=== PATIENT | male | born 1985 | race American Indian/Alaskan Native ===

== ENCOUNTER 2021-07-09 14:05 | Emergency (ER) | payer SELFPAY ==
[2021-07-09] MEDS ORDERED: ONDANSETRON 4 MG/2 ML INJ IM ONE (16:27)
--- NOTE | 2021-07-09 16:30 | Emergency Department Report ---
ED General Adult HPI - General Chief complaint: Nausea/Vomiting/Diarrhea Stated complaint: STOMACH BURNING PAIN/CP/NUMBNESS Time Seen by Provider: 07/09/21 16:20 Source: patient Mode of arrival: Ambulatory Limitations: No Limitations - History of Present Illness Initial comments: Mr. Anderson is a 35 years old male with no significant past medical history. Patient presented to the ER complaining of upper epigastric abdominal pain and substernal chest pain since yesterday. Patient also reported nausea, vomiting and diarrhea. Patient denied any fever or chills. Patient stated that he did not receive COVID-19 vaccine. - Related Data Allergies Allergy/AdvReac Type Severity Reaction Status Date / Time No Known Allergies Allergy Verified 07/09/21 16:12 ED Review of Systems ROS: Stated complaint: STOMACH BURNING PAIN/CP/NUMBNESS Other details as noted in HPI Comment: All other systems reviewed and negative Constitutional: denies: chills, fever Respiratory: cough, shortness of breath. denies: SOB with exertion, SOB at rest, wheezing Cardiovascular: chest pain. denies: palpitations Gastrointestinal: abdominal pain, nausea, vomiting, diarrhea Musculoskeletal: myalgia Neurological: denies: headache, weakness, numbness, paresthesias ED Past Medical Hx - Past Medical History Previous Medical History?: No - Surgical History Past Surgical History?: No - Social History Smoking Status: Current Every Day Smoker ED Physical Exam - General Limitations: No Limitations General appearance: alert, in no apparent distress - Head Head exam: Present: atraumatic, normocephalic, normal inspection - Eye Eye exam: Present: normal appearance, PERRL - ENT ENT exam: Present: normal exam, normal orophraynx, mucous membranes moist - Neck Neck exam: Present: normal inspection, full ROM. Absent: tenderness, meningismus - Respiratory Respiratory exam: Present: normal lung sounds bilaterally - Cardiovascular Cardiovascular Exam: Present: regular rate, normal rhythm, normal heart sounds - GI/Abdominal GI/Abdominal exam: Present: soft, normal bowel sounds. Absent: distended, tenderness, guarding, rebound, rigid, organomegaly, mass, bruit, pulsatile mass, hernia - Extremities Exam Extremities exam: Present: normal inspection, full ROM, normal capillary refill. Absent: tenderness, pedal edema, joint swelling, calf tenderness - Back Exam Back exam: Present: normal inspection, full ROM. Absent: CVA tenderness (R), CVA tenderness (L) - Neurological Exam Neurological exam: Present: alert, oriented X3, CN II-XII intact, normal gait, reflexes normal. Absent: motor sensory deficit - Psychiatric Psychiatric exam: Present: normal mood - Skin Skin exam: Present: warm, intact, normal color ED Course Vital Signs 07/09/21 07/09/21 07/09/21 16:06 17:39 17:40 Temperature 98.9 F 98.2 F Pulse Rate 71 83 Respiratory 18 12 Rate Blood Pressure 133/71 [Right] O2 Sat by Pulse 100 99 99 Oximetry ED Medical Decision Making - Lab Data Result diagrams: 07/09/21 16:46 07/09/21 16:46 - EKG Data -: EKG Interpreted by Hi EKG shows normal: sinus rhythm Rate: normal - EKG Data Interpretation: no acute changes - Radiology Data Radiology results: report reviewed - Medical Decision Making Mr. Anderson is a 35 years old male with no significant past medical history. Patient presented to the ER complaining of upper epigastric abdominal pain and substernal chest pain since yesterday. Patient also reported nausea, vomiting and diarrhea. Patient denied any fever or chills. Patient stated that he did not receive COVID-19 vaccine. EKG is unremarkable. Chest x-ray is negative for acute finding. Labs reviewed and is unremarkable including a negative troponin. Patient chest pain is atypical. Patient described as burning sensation to going to throat. This is most likely consistent with GERD. Patient received Zofran and he stated that it helped his nausea and vomiting very much. Patient also given prescription for Nexium and advised to follow-up with his primary doctor in the next 2 to 3 days and to return to the ER if he develop any new symptoms. Critical care attestation.: If time is entered above; I have spent that time in minutes in the direct care of this critically ill patient, excluding procedure time. ED Disposition Clinical Impression: Acute chest pain, GERD (gastroesophageal reflux disease), Acute nausea with nonbilious vomiting Disposition: 01 HOME / SELF CARE / HOMELESS Is pt being admited?: No Condition: Stable Instructions: Chest Pain (ED), Nausea and Vomiting, Adult, [id number], Nonspecific Chest Pain, Adult, [id number] Referrals: [facility] [Provider Group] - 3-5 Days
--- NOTE | 2021-07-09 17:14 | XRay Report ---
CHEST 1 VIEW 07/09/2021 3:49 PM INDICATION / CLINICAL INFORMATION: Chest pain x2 days. COMPARISON: None available. FINDINGS: SUPPORT DEVICES: None. HEART / MEDIASTINUM: No significant abnormality. LUNGS / PLEURA: No significant pulmonary abnormality. No significant pleural effusion. No pneumothora x. ADDITIONAL FINDINGS: No significant additional findings. IMPRESSION: 1. No acute abnormality of the chest. Signer Name: Jared Louis MD Signed: 07/09/2021 5:10 PM Workstation Name: [id number]
[2021-07-09 17:30] LABS: Basophils % (Auto) 0.3 % (0.0-1.8); Eosinophils % (Auto) 0.1 % (0.0-4.3); Hematocrit 50.5 % (35.5-45.6); Lymphocytes # (Auto) 1.1 K/mm3 (1.2-5.4); Lymphocytes % (Auto) 15.9 % (13.4-35.0); Mean Corpuscular HGB Conc 34 % (32-34); Mean Corpuscular Volume 86 fl (84-94); Monocytes # (Auto) 0.7 K/mm3 (0.0-0.8); Monocytes % (Auto) 10.2 % (0.0-7.3); Platelet Count 208 K/mm3 (140-440); Red Blood Count 5.85 M/mm3 (3.65-5.03); Red Cell Distribution Width 13.3 % (13.2-15.2)
[2021-07-09 17:41] VITALS: BP 133/71
[2021-07-09 17:41] LABS: BUN/Creatinine Ratio 11; Blood Urea Nitrogen 9 mg/dL (9-20); Hemolysis Index 3
--- NOTE | 2021-07-10 10:11 | Electrocardiograph Report ---
[facility] Test Date: 2021-07-09 Test Time: 16:14:00 Pat Name: NICKOLAS BARTH Department: Room: Gender: M [employer]: DOROTHY : 1985 Requested By: RAMANA ZAIDI Order Number: [id number] Reading MD: Issa Burdick Measurements Intervals [place] Rate: 57 P: 63 ME: 134 QRS: 20 QRSD: 89 T: -28 QT: 430 QTc: 418 Interpretive Statements Sinus bradycardia Nonspecific T abnormalities, inferior leads ST elev, probable normal early repol pattern No previous ECG available for comparison Electronically Signed On 07-10-2021 10:10:51 EDT by Issa Burdick
== END 2021-07-09 18:32 | disposition home or self-care (01) ==
LOC: ED 14:05
DX: R07.89 Other chest pain (principal); K21.9 Gastro-esophageal reflux disease without esophagitis; R11.0 Nausea; F17.200 Nicotine dependence, unspecified, uncomplicated
CPT/HCPCS: 36415; 71045; 80048; 83690; 84484; 85025; 93005; 96372; 99283; J2405; 71046